=== PATIENT | male | born 1985 | race Caucasian/White ===

== ENCOUNTER 2016-03-16 22:50 | Emergency (ER) | payer OTHER ==
[~2016-03-16] VITALS: Ht 165.1 cm; Wt 59.0 kg
[~2016-03-16 22:50] MED LIST: CLEOCIN HCL300 M1 PO; CLEOCIN HCL300 MG PO; GUAIFENESIN-COD10 ML PO; IBUPROFEN800 M1 PO; PERCOCET 325 MG1 TA2 PO; PERCOCET 5-3251 EACH PO; VICODIN 5-3001 EACH PO
[2016-03-16 22:55] VITALS: BP 111/78
--- NOTE | 2016-03-16 23:47 | ED THROAT/DENTAL COMPLAINT ---
History of Present Illness General Chief Complaint: Sore Throat, Dental Pain Stated Complaint: TOOTH PAIN, SWELLING Source: patient, old records Exam Limitations: no limitations Vital Signs & Intake/Output Vital Signs & Intake/Output Vital Signs Date Time Temp Pulse Resp B/P Pulse O2 O2 Flow FiO2 Ox Delivery Rate 03/16 2255 98.5 87 20 111/78 99 Room Air ED Intake and Output 03/17 0000 03/16 1200 Intake Total Output Total Balance Patient 130 lb Weight Allergies Coded Allergies: Penicillins (UNKNOWN PER PT 03/16/16) Reconcile Medications Clindamycin HCl 300 MG CAPSULE 1 CAP PO TID dental abscess Ibuprofen (Advil) 200 MG TABLET 2-3 TAB PO PRN PAIN (Reported) Oxycodone HCl/Acetaminophen (Percocet 5-325 MG Tablet) 5 MG-325 MG TABLET 1 TAB PO BID PRN breakthrough pain Triage Note: TRIAGE: PT TO ER C/C PAIN/SWELLING TO RT SIDE OF MOUTH, ONSET YESTERDAY. STATES STARTED VAPING 2 DAYS AGO IN EFFORTS TO QUIT SMOKING AND READ ONLINE THAT THE SWELLING COULD BE RELATED TO THE VAPING. Triage Nurses Notes Reviewed? yes Onset: Abrupt Duration: day(s): (2), constant Timing: recent history Injury Environment: home Severity: moderate Severity Numbers: 7 Modifying Factors: Worsens With: eating. Associated Symptoms: denies HPI: 30-year-old male presents emergency room complaining of right lower gingival swelling pain 7 out of 10 worse with palpation and eating for the past 2 days. He incidentally began vaping at that time and read online that that could cause of symptoms. He denies any fevers or chills. He denies any cough sore throat difficulty swallowing lip or tongue swelling. There are no associated symptoms or other modifying factors otherwise. (LÓPEZ LIMA,WILIAN) Past History Travel History Traveled to [place] past 21 day No Medical History Any Pertinent Medical History? 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 No (WILIAN MORALES) Review of Systems Review of Systems Constitutional: Reports: see HPI. All Other Systems: Reviewed and Negative Comments Review of systems: See HPI, All other systems negative. Constitutional, no chills no fever, no malaise HEENT: No visual changes no sore throat no congestion Cardiovascular: No chest pain , no palpitation Skin, no rashes, no change in skin Respiratory: No dyspnea no cough no sputum GI: No nausea no vomiting, no diarrhea, : No dysuria Muscle skeletal: No joint pain, no back pain, no neck pain, Neurologic: No numbness , no headache Psych: No stress no depression,. Heme/endocrine: No bruising no bleeding Immunology: No lymphadenopathy (WILIAN MORALES) Physical Exam Physical Exam General Appearance: well developed/nourished, no apparent distress, alert, awake , comfortable Mouth/Throat: r lower gingival swelling, no trismus no uvual displacement Comments: Well-developed well-nourished patient in no apparent distress. Head/Face: Atraumatic, no maxillary/frontal sinus tenderness, right lower facial swelling Eyes: PERRL, EOMI, no conjunctival injection. Ear:External auditory canals clear, no erythema, no FB. Nose: atraumatic.Normal inspection Throat: Moist mucous membranes.Pharynx normal. No pharyngeal erythema/exudate seen. No stridor/drooling or assymetry. No swelling or edema. Neck: Supple, no lymphadenopathy, FROM Back: FROM, Nontender Cardiovascular: Regular rate and rhythms no murmurs Respiratory: No respiratory distress. Patient speaking in full complete sentences. Extremities: full range of motion Neuro: Alert and oriented x3 Skin: Warm & dry;No appreciable rash on exposed skin Psych: Mood affect normal, normal memory normal judgment. Core Measures ACS in differential dx? No Severe Sepsis Present: No Septic Shock Present: No (WILIAN MORALES) Progress Differential Diagnosis: epiglottitis, Ludwigs angina, odontogenic abscess, caroline- tonsillar abscess, pharyngeal for. body, sialdolithiasis Plan of Care: Patient prescribed clindamycin and Percocet advise follow-up with primary care return with any concerns on Saturday. He feels comfortable plan he'll return anytime sooner cleared for discharge (WILIAN MORALES) Departure Departure Time of Disposition: 2358 Disposition: HOME OR SELF CARE Condition: Stable Clinical Impression Primary Impression: Abscess Referrals: PATIENT HAS NO PRIMARY CARE DR (PCP/Family) Additional Instructions: Clindamycin and Percocet as directed follow-up with her primary care physician on Saturday. Use lemon swabs as discussed to help keep your mouth moist return with any concerns Departure Forms: Customer Survey General Discharge Information Prescriptions: Current Visit Scripts Clindamycin HCl 1 CAP PO TID #21 CAP Oxycodone HCl/Acetaminophen (Percocet 5-325 MG Tablet) 1 TAB PO BID PRN breakthrough pain #8 TAB (WILIAN MORALES) PA/WOOL BATTING WORKER Co-Sign Statement Statement: ED Attending supervision documentation- [] I saw and evaluated the patient. I have also reviewed all the pertinent lab results and diagnostic results. I agree with the findings and the plan of care as documented in the PA's/WOOL BATTING WORKER's documentation. [x] I have reviewed the ED Record and agree with the PA's/WOOL BATTING WORKER's documentation. [] Additions or exceptions (if any) to the PAs/WOOL BATTING WORKER's note and plan are summarized below: [] (SELIN PHAN,BRENTON Hernández)
[2016-03-16] MEDS ORDERED: ADVIL200 M2 PO (23:58)
[2016-03-17] MEDS ORDERED: CLINDAMYCIN HC300 M1 PO (00:01)
[2016-03-17] MEDS ORDERED: PERCOCET 5-3251 EACH PO (00:01)
== END 2016-03-17 00:05 ==
LOC: ERH 22:50
DX: K12.2 Cellulitis and abscess of mouth (principal)

== ENCOUNTER 2016-08-06 23:30 | Emergency (ER) | payer OTHER ==
[~2016-08-06 23:30] MED LIST changes: +ADVIL200 M2 PO; +CLINDAMYCIN HC300 M1 PO
== END 2016-08-07 01:38 | disposition admitted as inpatient to this hospital (09) ==
LOC: ERH 23:30
DX: M54.2 Cervicalgia (principal); M25.519 Pain in unspecified shoulder

== ENCOUNTER 2017-07-18 12:37 | Emergency (ER) | payer OTHER ==
[~2017-07-18] VITALS: Ht 165.1 cm; Wt 59.0 kg
[2017-07-18 12:39] VITALS: BP 135/85
--- NOTE | 2017-07-18 13:22 | ED THROAT/DENTAL COMPLAINT ---
History of Present Illness General Chief Complaint: Sore Throat, Dental Pain Stated Complaint: TOOTH ABSCESS Source: patient, old records Exam Limitations: no limitations Vital Signs & Intake/Output Vital Signs & Intake/Output Vital Signs Date Time Temp Pulse Resp B/P B/P Pulse O2 O2 Flow FiO2 Mean Ox Delivery Rate 07/18 1239 98.2 194 16 135/85 98 Room Air Allergies Coded Allergies: Penicillins (UNKNOWN PER PT 03/16/16) Reconcile Medications Clindamycin HCl 300 MG CAPSULE 1 CAP PO TID dental Clindamycin HCl (Cleocin HCl) 300 MG CAPSULE 1 CAP PO TID DENTAL ABSCESS Ibuprofen 800 MG TABLET 1 TAB PO TID PRN pain Oxycodone HCl/Acetaminophen (Percocet 5-325 MG Tablet) 5 MG-325 MG TABLET 1 TAB PO BID PRN pain Oxycodone HCl/Acetaminophen (Percocet 5-325 MG Tablet) 5 MG-325 MG TABLET 1 TAB PO BID PRN PAIN Triage Note: 32 Y/O MALE C/O R LOWER DENTAL PAIN AND SWELLING SINCE THIS AM, "AN ABCESS". TOOK 2 TABS ADVIL AT 0900 WITH SOME RELIEF. AFEBRILE Triage Nurses Notes Reviewed? yes Onset: Abrupt Duration: day(s): (1), constant Timing: recent history Injury Environment: home Severity: moderate Severity Numbers: 6 Modifying Factors: Worsens With: eating. Associated Symptoms: DENIES HPI: 32-year-old male presents to ER complaint right lower dental tenderness pain and swelling since this morning after eating a north egg and cheese sandwich. He reports history of similar episodes in the past no facial swelling fever chills nausea vomiting. He took 2 Advil without improvement. Pain is worse with palpation eating. (Cordell Stinson) Past History Travel History Traveled to [place] past 21 day No Medical History Any Pertinent Medical History? 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 No (Cordell Stinson) Review of Systems Review of Systems Constitutional: Reports: see HPI. Comments Review of systems: See HPI, All other systems negative. Constitutional, no chills no fever HEENT: no sore throat no congestion Cardiovascular: No chest pain Skin: no rashes, no change in skin Respiratory: no cough : No dysuria No hematuria, no frequency Muscle skeletal: No joint pain, no back pain Neurologic: , no headache Heme/endocrine: No bruising (Cordell Stinson) Physical Exam Physical Exam General Appearance: well developed/nourished, no apparent distress, alert Mouth/Throat: dental tenderness Comments: Well-developed well-nourished patient in no apparent distress. HEENT: Right lower dental tenderness poor dentition no abscess no facial swelling Atraumatic, extraocular motion intact Neck: Supple, FROM Back: FROM Respiratory: No respiratory distress. Patient speaking in full complete sentences. Extremities: full range of motion Neuro: awake, alert, and oriented to person, place and time. There were no obvious focal neurologic abnormalities. Skin: Warm & dry;No appreciable rash on exposed skin Psych: Mood affect normal, normal memory normal judgment. Core Measures ACS in differential dx? No Sepsis Present: No Sepsis Focused Exam Completed? No (Cordell Stinson) Progress Differential Diagnosis: aspirated tooth, carious tooth, Ludwigs angina, odontogenic abscess, caroline-tonsillar abscess, strep pharyngitis, tooth fracture Plan of Care: Discussed with patient need to follow-up with dental clinic provided information provided clindamycin and Percocet prescriptions provided he feels comfortable plan cleared for discharge (Cordell Stinson) Departure Departure Time of Disposition: 1324 Disposition: HOME OR SELF CARE Condition: Stable Clinical Impression Primary Impression: Pain, dental Referrals: Patient Has No Primary Care Dr (PCP/Family) Additional Instructions: Follow-up with dental clinic was provided. Clindamycin as directed Percocet for breakthrough pain use caution is a narcotic and highly addictive. No driving or drinking alcohol while taking. Departure Forms: Customer Survey General Discharge Information Prescriptions: Current Visit Scripts Oxycodone HCl/Acetaminophen (Percocet 5-325 MG Tablet) 1 TAB PO BID PRN pain #6 TAB Clindamycin HCl 1 CAP PO TID #21 CAP (Cordell Stinson) PA/MOVIE STAR Co-Sign Statement Statement: ED Attending supervision documentation- [] I saw and evaluated the patient. I have also reviewed all the pertinent lab results and diagnostic results. I agree with the findings and the plan of care as documented in the PA's/MOVIE STAR's documentation. [X] I have reviewed the ED Record and agree with the PA's/MOVIE STAR's documentation. [] Additions or exceptions (if any) to the PAs/MOVIE STAR's note and plan are summarized below: [] (Marc PHAN,Price Archuleta)
[2017-07-18] MEDS ORDERED: CLINDAMYCIN HC300 M1 PO (13:26)
[2017-07-18] MEDS ORDERED: PERCOCET 5-3251 EACH PO (13:26)
== END 2017-07-18 13:34 ==
LOC: ERH 12:37
DX: K08.89 Other specified disorders of teeth and supporting structures (principal)